=== PATIENT | male | born 1955 | race Caucasian/White ===

== ENCOUNTER 2016-12-09 10:15 | Inpatient (IN) | payer OTHER ==
[~2016-12-09] VITALS: Ht 162.6 cm; Wt 144.7 kg
--- NOTE | ~2016-12-09 | HC ---
[facility] [place] [address] CONSULTATION Name: LUCHOHAYLEE MORA Room #: 213-P ADM IN M.R.#: [id number] Admission: 12/09/16 Attend Phys: Ethan Yip Discharge: Date of : 57 Report #: [id number] THIS REPORT FOR: //name// CC: Ethan Smith DATE OF SERVICE: 12/11/2016 REASON FOR CONSULTATION: Hypoxemia. IMPRESSION: 1. Hypoxia, question etiology. 2. History of restrictive lung disease as well as asthma. 3. Obstructive sleep apnea. 4. Atrial fibrillation with rapid ventricular response, being treated. 5. Coronary artery disease. 6. Hypertension. 7. Possible pulmonary stenosis. 8. Obesity. PLAN: Related he felt better when he was on Symbicort 160. We will add Pulmicort. Continue aerosol treatments. We will check and see if needs O2 with the CPAP. Further evaluation regarding pulmonic stenosis will be considered. Wean corticosteroids as able. HISTORY OF PRESENT ILLNESS: A 61-year-old male admitted on the with progressive shortness breath and cough. No sputum production, found to have atrial fibrillation with a fast rate. Has been doing some better during his stay. ALLERGIES: To PENICILLIN and NIACIN and also to BEESTINGS and WASP. CURRENT MEDICATIONS: Include albuterol, budesonide, metoprolol, torsemide, aspirin, Eliquis for the AFib, Lipitor, Solu-Medrol, Levaquin, hydrocodone, Ambien and CPAP. PAST MEDICAL HISTORY: Dyslipidemia, pulmonic stenosis, chest pain, asthma, sleep apnea, obesity, osteoarthritis, migraine headaches and coronary artery disease. PAST SURGICAL HISTORY: Angiogram to brain in 2002. FAMILY HISTORY: Positive for heart disease and cancer. SOCIAL HISTORY: Negative ETOH or tobacco. [facility] [address] [place] [address] CONSULTATION Name: LUCHOHAYLEERASHMI MORA Room #: 213-P [facility] IN ..#: [id number] Admission: 12/09/16 Attend Phys: Ethan Yip Discharge: Date of : 57 Report #: [id number] REVIEW OF SYSTEMS: Positive dyspnea on exertion, wheeze, cough and weight gain. No hemoptysis or hematemesis. PHYSICAL EXAMINATION: VITAL SIGNS: Temperature 98.2, pulse 90, respirations 16 and BP 114/66. EYES: Negative icterus. NECK: Negative JVD. LUNGS: Showed decreased breath sounds. No wheeze. HEART: Regular. ABDOMEN: Bowel sounds present. Obese. EXTREMITIES: Showed positive edema. LABORATORY DATA: Chest x-ray showed no acute and positive cardiomegaly. PH 7.437, pCO2 of 43 and pO2 of 58 on 2 liters. White count was 19.6, hemoglobin 11, platelets 347 and bands 1. D-dimer 0.99. TSH 1.542. Echo did show EF 55%, left atrium dilated, right atrium normal, mild MR and pulmonic stenosis may be present. We will follow closely with you. By: 1457 1832 Payton Beckman MD /iván
--- NOTE | ~2016-12-09 | EKG ---
[address] [place] [address] ELECTROCARDIOGRAM REPORT Name: LUCHOHAYLEE MORGAN Room #: 213-P ADM IN M.R.#: [id number] Admission: 12/09/16 Attend Phys: Ethan Yip Discharge: Date of : 57 Report #: [id number] THIS REPORT FOR: //name// [facility] ED Test Date: 2016-12-09 Test Time: 10:17:42 Pat Name: HAYLEE YEPEZ Department: Room: 213 Gender: M Wildland Firefighter: [id number] : 1955 Requested By: Art Sorensen Order Number: [id number] MD: Linwood Morris Measurements Intervals [place] Rate: 126 P: [place]: QRS: 148 QRSD: 94 T: 51 QT: 331 QTc: 480 Interpretive Statements Atrial fibrillation Right axis deviation Poor R wave progression No previous ECG available for comparison Electronically Signed On 12-10-2016 8:04:20 CDT by Linwood Morris [email or web address] <ELECTRONICALLY SIGNED> By: Linwood Morris MD, [facility] 12/10/16 0804 1017 1017 Linwood Morris MD, FACC /EPI
--- NOTE | ~2016-12-09 | 2DMMODE ---
[facility] [place] [address] 2 D/M-MODE ECHOCARDIOGRAM Name: LUCHOHAYLEE MORA Room #: 213-P ADM IN M.R.#: [id number] Admission: 12/09/16 Attend Phys: Ethan Pinon Discharge: Date of : 57 Date of Service: 12/09/16 1717 Report #: [id number] THIS REPORT FOR: //name// APPROVED REPORT Study performed: 12/09/2016 14:30:25 EXAM: Comprehensive 2D, Doppler, and color-flow Echocardiogram Patient Location: Bedside Room #: 213 Status: routine BSA: 2.38 HR: 102 bpm BP: 120/75 mmHg Other Information Study Quality: Fair Indications Atrial Fibrillation Dyspnea Hypertension/HDD HLP Echo Enhancing Agent Indication: Endocardial border delineation Agent(s) / Amount(s) Used: Optison 6 cc Aortic Valve AoV Peak Presley.: 1.38 m/s AO Peak Gr.: 7.67 mmHg Pulmonary Valve PV Peak Presley.: 1.98 m/s PV Peak Gr.: 15.76 mmHg Left Ventricle The left ventricle is normal size. There is normal left ventricular wall thickness. The left ventricular systolic function is normal. The left ventricular ejection fraction is within the normal range. LVEF is >55%. This study is not technically sufficient to allow evaluation of the LV diastolic function due to atrial fibrillation. Right Ventricle The right ventricle is normal size. The right ventricular systolic [facility] [address] [place] [address] 2 D/M-MODE ECHOCARDIOGRAM Name: HAYLEE YEPEZ Room #: 213-P ADM IN M.R.#: [id number] Admission: 12/09/16 Attend Phys: Ethan Pinon Discharge: Date of : 57 Date of Service: 12/09/16 1717 Report #: [id number] function is normal. Atria Left atrium is dilated. The right atrium size is normal. Aortic Valve Aortic valve is not well visualized. No aortic regurgitation is present. There is no aortic valvular stenosis. Mitral Valve Mitral valve is not well visualized. Mild mitral regurgitation. No evidence of mitral valve stenosis. Tricuspid Valve Tricuspid valve is not well visualized. There is no tricuspid valve regurgitation noted. Pulmonic Valve Pulmonic valve is not well visualized. Pulmonic stenosis MAY BE present. There is no pulmonic valvular regurgitation. Great Vessels The aortic root is normal in size. IVC is not well visualized. Pericardium There is no pericardial effusion. <Conclusion> The left ventricle is normal size. LVEF is >55%. Left atrium is dilated. The right atrium size is normal. Aortic valve is not well visualized. Mitral valve is not well visualized. Mild mitral regurgitation. Tricuspid valve is not well visualized. Pulmonic valve is not well visualized. Pulmonic stenosis MAY BE present. The aortic root is normal in size. <ELECTRONICALLY SIGNED> By: Sumit Riley MD 12/09/161716 16 16 Sumit Riley MD /INF
[~2016-12-09 10:15] MED LIST: ASPIRIN325 PO; B-12 DOTS500 MCG PO; BENICAR HCT 201 EACH PO; BILBERRY1 EAC1 PO; CALCIUM PO; CHROMIUM PICO400 MCG PO; CRESTOR10 MG PO; FLAX OIL1000 MG PO; FOLIC ACID0.4 MG PO; GARLIC OIL1 EAC1 PO; GINKGO BILOBA40 M1 PO; GINSANA100 M1 PO; GLUCOSAMINE &1 EACH PO; GRAPE SEED EXTR50 MG PO; HAWTHORN BERRY500 MG PO; ISOSORBIDE DINI30 MG PO; MELOXICAM7.5 MG PO; MOVANA300 MG PO; MULTIVITAMINS PO; POTASSIUM GLUCONATE PO; PROVENTIL INH; QVAR HFA 440 MCG/UN1 INH; SAW PALMETTO 1160 MG PO; VITAMIN D1000 UNI1 PO; VITAMIN E400 UNIT PO
[2016-12-09 10:16] VITALS: BP 127/81
[2016-12-09 10:29] LABS: HEMOGLOBIN 11.1 gm/dL (14.0-18.0); MCHC 30.8 g/dL (28.0-37.0); MCV 71.3 fL (80.0-100.0); PLATELET COUNT 283 thou/uL (150-400); RBC 5.05 mil/uL (4.50-6.00); RDW 17.8 % (10.5-14.5); WBC 14.4 thou/uL (4.0-11.0)
[2016-12-09 10:30] LABS: MANUAL DIFF YES
[2016-12-09 10:40] LABS: ANION GAP 7 mmol/L (7-16); BUN 11 mg/dL (7-18); CALCIUM 9.1 mg/dL (8.5-10.1); CHLORIDE 104 mmol/L (98-107); CO2 30 mmol/L (21-32); CREATININE 0.9 mg/dL (0.7-1.3); GLUCOSE 108 mg/dL (74-106); POTASSIUM 3.7 mmol/L (3.5-5.1); SODIUM 141 mmol/L (136-145)
[2016-12-09 10:53] LABS: NT-PRO BRAIN NAT PEPTIDE 702 pg/mL (<300); TROPONIN-I < 0.04 ng/mL (<0.04-0.07)
[2016-12-09 11:16] LABS: ABSOLUTE NEUTROPHILS 11.1 thou/uL (1.4-8.2); ANISOCYTOSIS 2+; HYPOCHROMASIA 1+; MICROCYTES 2+; NUCLEATED RBCS 1 /100WBC; PLATELET ESTIMATE NORMAL; POLYCHROMASIA 1+; TOTAL CELL COUNT 100
[2016-12-09 11:37] VITALS: BP 127/74
[2016-12-09 11:50] VITALS: BP 120/66
[2016-12-09 12:15] VITALS: BP 120/75
[2016-12-09] MEDS ORDERED: NABUMETONE 500500 M1 PO (13:08)
[2016-12-09] MEDS ORDERED: LASIX 40 MG TAB40 M2 PO (13:08)
[2016-12-09] MEDS ORDERED: FLOMAX0.4 MG PO (13:08)
[2016-12-09] MEDS ORDERED: LISINOPRIL20 MG PO (13:08)
[2016-12-09] MEDS ORDERED: SYMBICORT80 MCG/4.5 INH (13:08)
[2016-12-09] MEDS ORDERED: ROSUVASTATIN CA40 MG PO (13:08)
[2016-12-09] MEDS ORDERED: FLOVENT HFA 2220 MCG INH (13:09)
[2016-12-09] MEDS ORDERED: CO Q-10100 MG (13:42)
[2016-12-09 15:57] VITALS: BP 128/86
[2016-12-09 19:23] VITALS: BP 116/64
[2016-12-10 03:46] VITALS: BP 113/72
[2016-12-10 08:00] VITALS: BP 132/94
[2016-12-10 12:00] VITALS: BP 122/83
[2016-12-10 16:00] VITALS: BP 132/70
[2016-12-10 19:45] VITALS: BP 133/77
[2016-12-11 03:28] LABS: CALCIUM 8.6 mg/dL (8.5-10.1); CREATININE 0.7 mg/dL (0.7-1.3); MAGNESIUM 2.3 mg/dL (1.8-2.4); POTASSIUM 4.4 mmol/L (3.5-5.1)
[2016-12-11 04:35] VITALS: BP 116/60
[2016-12-11 07:20] VITALS: BP 117/64
[2016-12-11 09:56] LABS: HEMATOCRIT 36.4 % (42.0-52.0); MCH 21.9 pg (26.0-34.0); MCHC 30.2 g/dL (28.0-37.0); MCV 72.4 fL (80.0-100.0); PLATELET COUNT 347 thou/uL (150-400); RBC 5.02 mil/uL (4.50-6.00); RDW 18.2 % (10.5-14.5); WBC 19.6 thou/uL (4.0-11.0)
[2016-12-11 10:02] LABS: MANUAL DIFF YES
[2016-12-11 10:36] LABS: TOTAL CELL COUNT 100
[2016-12-11 10:37] LABS: HYPOCHROMASIA 2+; MICROCYTES 1+
[2016-12-11 10:38] LABS: POIKILOCYTOSIS SLIGHT; POLYCHROMASIA 1+
[2016-12-11 11:14] VITALS: BP 114/66
[2016-12-11 11:28] LABS: ABG SAMPLE TYPE ARTERIAL; BE(vivo) 3.6 mmol/L (-2 to +3); HCO3 28.2 mmol/L (22.0-26.0); LACTATE 2.67 mmol/L (0.5-2.0); O2Hb 89.6 % (92.0-98.0); PCO2 42.7 mmHg (35.0-45.0); PO2 58.5 mmHg (80.0-100.0); STICK SITE R.RADIAL; pH 7.437 (7.360-7.450); sO2 91.2 % (92.0-98.0); tCO2 29.5 mmol/L (24.0-30.0)
[2016-12-11 15:31] VITALS: BP 95/66
[2016-12-11 19:52] VITALS: BP 119/78
[2016-12-12 04:55] VITALS: BP 116/78
[2016-12-12 07:41] VITALS: BP 113/73
[2016-12-12 11:26] VITALS: BP 97/56
[2016-12-12 16:30] VITALS: BP 112/78
[2016-12-12 20:34] VITALS: BP 134/75
[2016-12-13 03:11] LABS: HEMATOCRIT 36.5 % (42.0-52.0); MCH 21.6 pg (26.0-34.0); MCHC 30.1 g/dL (28.0-37.0); MCV 71.8 fL (80.0-100.0); PLATELET COUNT 300 thou/uL (150-400); RBC 5.09 mil/uL (4.50-6.00); RDW 18.5 % (10.5-14.5); WBC 11.9 thou/uL (4.0-11.0)
[2016-12-13 03:13] LABS: MANUAL DIFF YES
[2016-12-13 03:30] VITALS: BP 135/71
[2016-12-13 03:39] LABS: CALCIUM 8.5 mg/dL (8.5-10.1); CREATININE 0.8 mg/dL (0.7-1.3); MAGNESIUM 2.3 mg/dL (1.8-2.4); POTASSIUM 3.8 mmol/L (3.5-5.1)
[2016-12-13 03:57] LABS: ABSOLUTE NEUTROPHILS 8.7 thou/uL (1.4-8.2); ATYPICAL MONONUCLEARS 2 %; HYPOCHROMASIA 2+; TOTAL CELL COUNT 100
[2016-12-13 03:58] LABS: ANISOCYTOSIS 2+; LARGE PLATELETS FEW; MICROCYTES 1+; POLYCHROMASIA 1+
[2016-12-13 08:08] VITALS: BP 104/62
[2016-12-13] MEDS ORDERED: POTASSIUM20 PO (08:48)
[2016-12-13] MEDS ORDERED: ELIQUIS5 MG PO (08:48)
[2016-12-13] MEDS ORDERED: TOPROL XL100 MG PO (08:48)
[2016-12-13] MEDS ORDERED: DEMADEX20 MG PO (08:48)
[2016-12-13] MEDS ORDERED: DIGOXIN250 MCG PO (08:48)
[2016-12-13] MEDS ORDERED: PREDNISONE 10 M10 MG PO (08:48)
[2016-12-13] MEDS ORDERED: LEVAQUIN 500 M500 M4 PO (08:48)
[2016-12-13] MEDS ORDERED: LISINOPRIL20 MG PO (08:50)
[2016-12-13 11:30] VITALS: BP 109/64
[2016-12-13 15:04] VITALS: BP 109/64
== END 2016-12-13 16:45 | disposition home health service (06) | DRG 871 ==
LOC: ER 10:15 → EROBS 11:03 → 2N 11:03
PROVIDERS: Emergency Medicine; Hospitalist; Internal Medicine; Internal Medicine Pulmonary Disease
DX: A41.9 Sepsis, unspecified organism (principal); J96.01 Acute respiratory failure with hypoxia; I50.33 Acute on chronic diastolic (congestive) heart failure; J44.1 Chronic obstructive pulmonary disease with (acute) exacerbation; J44.0 Chronic obstructive pulmonary disease with (acute) lower respiratory infection; J45.901 Unspecified asthma with (acute) exacerbation; Z68.43 Body mass index [BMI] 50.0-59.9, adult; I11.0 Hypertensive heart disease with heart failure; I48.91 Unspecified atrial fibrillation; E78.00 Pure hypercholesterolemia, unspecified; I25.10 Atherosclerotic heart disease of native coronary artery without angina pectoris; E78.5 Hyperlipidemia, unspecified; R09.02 Hypoxemia; G47.33 Obstructive sleep apnea (adult) (pediatric); M19.90 Unspecified osteoarthritis, unspecified site; G43.909 Migraine, unspecified, not intractable, without status migrainosus; J20.9 Acute bronchitis, unspecified; E66.01 Morbid (severe) obesity due to excess calories; D72.829 Elevated white blood cell count, unspecified; T38.0X5A Adverse effect of glucocorticoids and synthetic analogues, initial encounter; Z88.1 Allergy status to other antibiotic agents; Z88.0 Allergy status to penicillin; Z82.49 Family history of ischemic heart disease and other diseases of the circulatory system; Z80.9 Family history of malignant neoplasm, unspecified; Z79.899 Other long term (current) drug therapy; Z79.82 Long term (current) use of aspirin
CPT/HCPCS: 10081

== ENCOUNTER 2017-01-06 10:34 | Inpatient (IN) | payer OTHER ==
[~2017-01-06] VITALS: Ht 162.6 cm; Wt 132.0 kg
--- NOTE | ~2017-01-06 | O ---
[facility] [place] [address] OPERATIVE REPORT Name: HAYLEE YEPEZ Room #: 212-P ADM IN M.R.#: [id number] Admission: 01/06/17 Attend Phys: Yovany Goff MD Discharge: Date of : 57 Report #: [id number] THIS REPORT FOR: //name// CC: Sumit Ho PROCEDURE PERFORMED: EGD. INDICATIONS: Progressive anemia. MEDICATIONS: IV propofol under the direction of Anesthesiology. POST-PROCEDURAL FINDINGS: Normal upper endoscopy, with no evidence of old or new blood within the upper GI tract. DESCRIPTION OF PROCEDURE: The potential risks and benefits of upper endoscopy were reviewed in detail with the patient prior to the procedure. Informed consent was obtained. Following intravenous sedation with incremental dosages of IV propofol, under the direction of Anesthesiology, the upper endoscope was inserted into the esophagus under direct vision and advanced. The squamocolumnar junction appeared intact at 43 cm from the incisors, with no evidence of distal esophageal varices or other irregularities. The stomach was inspected in an antegrade and retrograde manner and appeared normal. The pylorus was easily intubated and duodenal bulb and duodenal sweep appeared unremarkable. The ampulla was well-visualized. No evidence of old or new blood was present in the upper GI tract. RECOMMENDATIONS: 1. Monitor H and H. 2. Check stool for occult blood. 3. Transfusion of 2 units packed red blood cells to be considered after discussion with Cardiology. 4. Colonoscopy may be required during this hospitalization. By: 0920 0944 Walter Horne MD /nt
--- NOTE | ~2017-01-06 | HC ---
[facility] [place] [address] CONSULTATION Name: HAYLEE YEPEZ Room #: 212-P ADM IN .R.#: [id number] Admission: 01/06/17 Attend Phys: Yovany Goff MD Discharge: Date of : 57 Report #: [id number] THIS REPORT FOR: //name// CC: Sumit Ho DATE OF SERVICE: 01/07/2017 HISTORY OF PRESENT ILLNESS: The patient is a 61-year-old male who was admitted yesterday due to some dizziness and feeling weak in general. He also had some tightness in his chest. He does have a history of AFib and congestive heart failure. Cardiology is following and workup has been negative. Reason for GI consultation is anemia. The patient was noted to have a hemoglobin on admission of 8.4, this dropped to 7.3 today. He was hospitalized last month and had a hemoglobin in 11 range at that time. He does report noticing dark stools over the last month. He denies any nausea or vomiting. He has never had an upper endoscopy before. He had a colonoscopy 2-3 years ago, reportedly benign polyps were removed at that time, but otherwise negative. He does report mild pain in his mid epigastrium, lower chest area. No significant dysphagia. No significant heartburn symptoms. He is on aspirin and Eliquis. The patient had breakfast this morning. He denies any shortness of breath currently. No fevers or chills. He reports bowel movements otherwise have been normal other than being dark. ALLERGIES: To LATEX, PENICILLIN, and NIACIN. PAST MEDICAL HISTORY: Atrial fibrillation, history of asthma, hypercholesterolemia, sleep apnea, hypertension, and coronary artery disease. MEDICATIONS ON ADMISSION: Eliquis, Lanoxin, Toprol, Demadex, aspirin, K-Dur, Flomax, Symbicort, glucosamine, calcium, albuterol, and multivitamin. FAMILY HISTORY: Negative for colon cancer. REVIEW OF SYSTEMS: As per HPI. SOCIAL HISTORY: He denies any tobacco or alcohol use. PHYSICAL EXAMINATION: VITAL SIGNS: Temperature is 98.3, pulse 92, blood pressure 123/55, and respiratory rate is 22. GENERAL: He is alert and oriented x3, in no acute distress. [address] [address] CONSULTATION Name: HAYLEE YEPEZ Room #: [address] [place] [address] IN M.R.#: [id number] Admission: 01/06/17 Attend Phys: Yovany Goff MD Discharge: Date of : 57 Report #: [id number] HEENT: Sclerae nonicteric. Oropharynx clear. NECK: Supple without lymphadenopathy. CARDIOVASCULAR: Regular rate and rhythm. CHEST: Mild decreased breath sounds at the bases bilaterally. ABDOMEN: Soft, nontender, and nondistended. Normoactive bowel sounds. EXTREMITIES: No cyanosis, clubbing, or edema. LABS: Sodium 139, potassium 3.5, chloride 103, bicarb 29, BUN 19, and creatinine 0.8. AST 15, total bili 0.7, alk phos 80, ALT is 23, total protein 6.0, and albumin 2.9. Troponin less than 0.04. Lactic acid . WBC is 12.0, hemoglobin 7.3, MCV is 70.2, and platelet count 277. Chest x-ray, mild patchy bibasilar atelectasis, cardiomegaly without evidence of failure. CTA of the chest yesterday, changes consistent with pulmonary artery hypertension, no definite emboli noted, fatty infiltration of the liver ASSESSMENT AND PLAN: Anemia. The patient with Hemoccult positive stools, recent dark stools, and has been on Eliquis and aspirin. We would recommend proceeding with an upper endoscopy. The patient had breakfast this morning; therefore, we will plan on performing upper endoscopy tomorrow morning. We will make the patient n.p.o. after midnight. We will add Protonix at this time. Continue to monitor hemoglobin closely. Thank you for allowing me to participate in his care. <ELECTRONICALLY SIGNED> By: Jose Guillory MD 01/12/17 0954 1146 1305 Jose Guillory MD /nt
--- NOTE | ~2017-01-06 | EKG ---
[place] [address] [facility] [place] [address] ELECTROCARDIOGRAM REPORT Name: HAYLEE YEPEZ Room #: 212-P ADM IN M.R.#: [id number] Admission: 01/06/17 Attend Phys: Yovany Goff MD Discharge: Date of : 57 Report #: [id number] THIS REPORT FOR: //name// [facility] ED Test Date: 2017-01-06 Test Time: 10:46:09 Pat Name: HAYLEE YEPEZ Department: Room: 212 Gender: M Facs Teacher: Adal DELGADO : 1955 Requested By: Maria L Bean Order Number: [id number] MD: Linwood Morris Measurements Intervals [place] Rate: 100 P: [place]: QRS: 84 QRSD: 105 T: -59 QT: 339 QTc: 438 Interpretive Statements Atrial fibrillation Occasional premature ventricular complexes Nonspecific ST and T wave abnormality Compared to ECG 12/09/2016 10:17:42 Premature ventricular complexes are now present Nonspecific change in the ST and T-wave segments Electronically Signed On 01-07-2017 7:55:05 CDT by Linwood Morris [email or web address] <ELECTRONICALLY SIGNED> By: Linwood Morris MD, FACC 01/07/17 0755 1046 1046 Linwood Morris MD, [facility] /EPI
--- NOTE | ~2017-01-06 | S ---
[facility] [place] [address] SURGICAL PATH RPT PROCEDURE Name: HAYLEE CARROLL Room #: 212-P ADM IN M.R.#: [id number] Admission: 01/06/17 Date of : 57 Discharge: Report #: [id number] Path Case #: [id number] PATHOLOGY REPORT COLLECTION DATE: 01/10/2017 RECEIVED DATE: 01/10/2017 SUBMITTING PHYS: Dr. Eyad Ernst OTHER PHYS: Dr. Yovany Ho SPECIMEN(S) RECEIVED: A.Cecum polyp B.Ascending polyp C.Transverse polyp * * * * * * * * * * * * FINAL DIAGNOSIS: A. "Cecum polyp", biopsy: - Tubular adenoma; no high-grade dysplasia. B. "Ascending polyp", biopsy: - Tubular adenoma; no high-grade dysplasia. - Inflammatory polyp. C. "Transverse polyp", biopsy: - Inflammatory polyp with focal ulceration. (CLW:nino; 01/11/2017) PATHOLOGIST: Sissy Zapata M.D. REPORT ELECTRONICALLY SIGNED BY: Sissy Zapata M.D. DATE/TIME: 01/11/2017 22:58 * * * * * * * * * * * * GROSS PATHOLOGY: A. Received in formalin labeled "Haylee Carroll, cecum polyps," are 2 segments of torres soft tissue measuring 0.8 x 0.3 x 0.3 cm in aggregate dimensions and measuring 0.4 cm in maximum dimension. The specimen is submitted entirely in cassette A1. B. Received in formalin labeled "Haylee Carroll, ascending polyp," are multiple (more than 10) segments of torres soft tissue measuring 1.8 x 0.8 x 0.3 cm in aggregate dimensions and ranging from 0.1 to 0.4 cm in maximum dimension. The specimen is filtered and submitted entirely in cassette B1. C. Received in formalin labeled "Haylee Carroll, transverse colon polyp," is a 0.5 x 0.5 x 0.4 cm polypoid piece of torres soft tissue with a stalk measuring 0.3 cm in length and 0.3 cm in diameter. The margin of the stalk is inked and the tissue is sectioned [facility] [address] [place] [address] SURGICAL PATH RPT PROCEDURE Name: HAYLEE CARROLL Room #: 212-P [facility] IN M.R.#: [id number] Admission: 01/06/17 Date of : 57 Discharge: Report #: [id number] Path Case #: [id number] perpendicular to the margin and submitted in its entirety in cassette C1. (TSD; 01/10/2017) CLINICAL HISTORY: Pre-OP DX: Anemia Post-OP DX: Diverticuli, hemorrhoids, polyps INITIAL CPT CODE(S): A; 27731 B; 27253 C; 64892 Professional services performed by [facility] at [facility] [address], [place] [address] Technical services performed by [facility] at [address] [place] [address], [address], [place] [address]. [facility] [address] [place] [address] PHONE: [phone] DIRECTOR: Keshav Faria M.D. * * * END OF REPORT * * *
[2017-01-06 10:34] VITALS: BP 115/67
[~2017-01-06 10:34] MED LIST changes: +CO Q-10100 MG; +DEMADEX20 MG PO; +DIGOXIN250 MCG PO; +ELIQUIS5 MG PO; +FLOMAX0.4 MG PO; +FLOVENT HFA 2220 MCG INH; +LASIX 40 MG TAB40 M2 PO; +LEVAQUIN 500 M500 M4 PO; +LISINOPRIL20 MG PO; +NABUMETONE 500500 M1 PO; +POTASSIUM20 PO; +PREDNISONE 10 M10 MG PO; +ROSUVASTATIN CA40 MG PO; +SYMBICORT80 MCG/4.5 INH; +TOPROL XL100 MG PO
[2017-01-06 11:26] LABS: HEMATOCRIT 26.3 % (42.0-52.0); HEMOGLOBIN 8.4 gm/dL (14.0-18.0); MCH 22.6 pg (26.0-34.0); MCV 70.7 fL (80.0-100.0); PLATELET COUNT 296 thou/uL (150-400); RBC 3.72 mil/uL (4.50-6.00); RDW 20.8 % (10.5-14.5); WBC 11.8 thou/uL (4.0-11.0)
[2017-01-06 11:28] LABS: MANUAL DIFF YES
[2017-01-06] MEDS ORDERED: ASPIR 8181 MG PO (11:36)
[2017-01-06 11:43] LABS: ANION GAP 7 mmol/L (7-16); BUN 32 mg/dL (7-18); CALCIUM 8.6 mg/dL (8.5-10.1); CHLORIDE 100 mmol/L (98-107); CO2 29 mmol/L (21-32); CREATININE 0.9 mg/dL (0.7-1.3); GLUCOSE 119 mg/dL (74-106); POTASSIUM 3.8 mmol/L (3.5-5.1); SODIUM 136 mmol/L (136-145)
[2017-01-06 11:46] LABS: ALBUMIN 2.9 g/dL (3.4-5.0); ALKALINE PHOSPHATASE 80 U/L (46-116); SGOT 15 U/L (15-37); SGPT 23 U/L (30-65); TOTAL BILIRUBIN 0.7 mg/dL (<0.1-1.0); TROPONIN-I < 0.04 ng/mL (<0.04-0.07)
[2017-01-06 12:23] LABS: ABG SAMPLE TYPE ARTERIAL; BE(vivo) 6.9 mmol/L (-2 to +3); HCO3 30.5 mmol/L (22.0-26.0); LACTATE 1.73 mmol/L (0.5-2.0); O2(CT) 10.5 mL/dL (15.0-23.0); O2Hb 86.3 % (92.0-98.0); PCO2 39.6 mmHg (35.0-45.0); PO2 53.3 mmHg (80.0-100.0); pH 7.505 (7.360-7.450); sO2 90.5 % (92.0-98.0); tCO2 31.8 mmol/L (24.0-30.0)
[2017-01-06 12:24] LABS: STICK SITE R.RADIAL
[2017-01-06 12:30] LABS: ABSOLUTE NEUTROPHILS 8.4 thou/uL (1.4-8.2); ANISOCYTOSIS 2+; HYPOCHROMASIA 2+; LARGE PLATELETS FEW; MICROCYTES 3+; NUCLEATED RBCS 6 /100WBC; PLATELET ESTIMATE NORMAL; POLYCHROMASIA 2+; TOTAL CELL COUNT 100
[2017-01-06 14:45] VITALS: BP 101/62
[2017-01-06 15:30] VITALS: BP 124/64
[2017-01-06 15:39] VITALS: BP 102/67
[2017-01-06 19:35] VITALS: BP 114/55
[2017-01-07 03:28] VITALS: BP 114/57
[2017-01-07 04:32] LABS: HEMATOCRIT 23.4 % (42.0-52.0); HEMOGLOBIN 7.3 gm/dL (14.0-18.0); MCH 21.9 pg (26.0-34.0); MCHC 31.2 g/dL (28.0-37.0); MCV 70.2 fL (80.0-100.0); RBC 3.33 mil/uL (4.50-6.00); RDW 21.1 % (10.5-14.5)
[2017-01-07 04:44] LABS: CALCIUM 8.7 mg/dL (8.5-10.1); CREATININE 0.8 mg/dL (0.7-1.3); POTASSIUM 3.5 mmol/L (3.5-5.1)
[2017-01-07 07:15] VITALS: BP 123/55
[2017-01-07 11:10] VITALS: BP 92/55
[2017-01-07 14:04] VITALS: BP 92/55
[2017-01-07 15:30] VITALS: BP 95/55
[2017-01-07 19:21] VITALS: BP 105/54
[2017-01-08 03:30] LABS: HEMOGLOBIN 6.7 gm/dL (14.0-18.0)
[2017-01-08 03:31] LABS: HEMATOCRIT 21.6 % (42.0-52.0); MCH 21.9 pg (26.0-34.0); MCHC 30.9 g/dL (28.0-37.0); RBC 3.04 mil/uL (4.50-6.00); RDW 21.1 % (10.5-14.5); WBC 12.1 thou/uL (4.0-11.0)
[2017-01-08 03:35] LABS: CALCIUM 8.5 mg/dL (8.5-10.1); CREATININE 0.9 mg/dL (0.7-1.3); POTASSIUM 3.1 mmol/L (3.5-5.1)
[2017-01-08 05:21] VITALS: BP 110/63
[2017-01-08 07:20] VITALS: BP 113/67
[2017-01-08 11:29] VITALS: BP 113/67
[2017-01-08 11:30] VITALS: BP 87/40
[2017-01-08 11:59] VITALS: BP 113/62; BP 98/64
[2017-01-08 19:39] VITALS: BP 92/52
[2017-01-09 00:35] VITALS: BP 101/62
[2017-01-09 03:02] LABS: HEMOGLOBIN 7.6 gm/dL (14.0-18.0); MCH 23.1 pg (26.0-34.0); MCHC 31.5 g/dL (28.0-37.0); MCV 73.1 fL (80.0-100.0); RBC 3.29 mil/uL (4.50-6.00); RDW 23.1 % (10.5-14.5); WBC 9.5 thou/uL (4.0-11.0)
[2017-01-09 03:07] LABS: CREATININE 0.9 mg/dL (0.7-1.3); POTASSIUM 3.1 mmol/L (3.5-5.1)
[2017-01-09 04:39] VITALS: BP 97/59
[2017-01-09 07:20] VITALS: BP 113/68
[2017-01-09 11:20] VITALS: BP 79/52
[2017-01-09 15:40] VITALS: BP 89/54
[2017-01-09 19:27] VITALS: BP 97/55
[2017-01-10 04:17] VITALS: BP 99/63
[2017-01-10 07:59] VITALS: BP 108/63
[2017-01-10 12:32] VITALS: BP 110/51
[2017-01-10 12:40] VITALS: BP 112/60
[2017-01-10 15:09] LABS: ABSOLUTE NEUTROPHILS 8.9 thou/uL (1.4-8.2); BASOPHILS 0.6 % (0.0-2.0); EOSINOPHILS 2.2 % (0.0-3.0); HEMATOCRIT 27.1 % (42.0-52.0); HEMOGLOBIN 8.7 gm/dL (14.0-18.0); LYMPHOCYTES 14.8 % (24.0-44.0); MCH 23.5 pg (26.0-34.0); MCHC 32.1 g/dL (28.0-37.0); MCV 73.1 fL (80.0-100.0); MONOCYTES 9.1 % (1.0-8.0); POLYS 73.3 % (36.0-66.0); RDW 23.5 % (10.5-14.5); WBC 12.1 thou/uL (4.0-11.0)
[2017-01-10 15:10] LABS: PLATELET COUNT 334 thou/uL (150-400)
[2017-01-10 15:11] LABS: MANUAL DIFF NO
[2017-01-10 15:31] VITALS: BP 98/52
[2017-01-10 15:57] LABS: ANISOCYTOSIS 2+; MICROCYTES 2+
[2017-01-10 15:58] LABS: HYPOCHROMASIA 2+; POIKILOCYTOSIS SLIGHT; POLYCHROMASIA SLIGHT
[2017-01-10 20:27] VITALS: BP 92/55
[2017-01-11 04:00] VITALS: BP 104/64
[2017-01-11 04:13] LABS: HEMATOCRIT 24.4 % (42.0-52.0); HEMOGLOBIN 7.8 gm/dL (14.0-18.0); MCH 23.1 pg (26.0-34.0); MCHC 32.1 g/dL (28.0-37.0); MCV 71.9 fL (80.0-100.0); RBC 3.39 mil/uL (4.50-6.00); RDW 22.9 % (10.5-14.5); WBC 11.7 thou/uL (4.0-11.0)
[2017-01-11 04:25] LABS: CALCIUM 8.3 mg/dL (8.5-10.1); CREATININE 0.8 mg/dL (0.7-1.3); POTASSIUM 3.3 mmol/L (3.5-5.1)
[2017-01-11 07:40] VITALS: BP 97/47
[2017-01-11 09:02] VITALS: BP 120/60
[2017-01-11 11:30] VITALS: BP 89/57
[2017-01-11 15:35] VITALS: BP 95/63
[2017-01-11 20:30] VITALS: BP 138/98
[2017-01-12 04:35] VITALS: BP 106/63
[2017-01-12 06:05] LABS: HEMATOCRIT 24.6 % (42.0-52.0); HEMOGLOBIN 7.8 gm/dL (14.0-18.0); MCH 22.9 pg (26.0-34.0); MCHC 31.8 g/dL (28.0-37.0); RBC 3.42 mil/uL (4.50-6.00); WBC 14.3 thou/uL (4.0-11.0)
[2017-01-12 06:23] LABS: CALCIUM 8.7 mg/dL (8.5-10.1); CREATININE 0.8 mg/dL (0.7-1.3); MAGNESIUM 2.1 mg/dL (1.8-2.4); POTASSIUM 3.9 mmol/L (3.5-5.1)
[2017-01-12 07:54] VITALS: BP 90/55
[2017-01-12 12:07] VITALS: BP 107/71
[2017-01-12 13:38] VITALS: BP 107/71
[2017-01-12 15:50] VITALS: BP 98/40
== END 2017-01-12 17:30 | disposition home or self-care (01) | DRG 393 ==
LOC: ER 10:34 → EROBS 14:17 → 2N 14:17
PROVIDERS: Hospitalist; Internal Medicine; Physician Assistant
PROC: 0DJ08ZZ Inspection of Upper Intestinal Tract, Via Natural or Artificial Opening Endoscopic (ICD-10-PCS; principal; 2017-01-06)
PROC: 30233N1 Transfusion of Nonautologous Red Blood Cells into Peripheral Vein, Percutaneous Approach (ICD-10-PCS; 2017-01-08)
PROC: 0DBH8ZX Excision of Cecum, Via Natural or Artificial Opening Endoscopic, Diagnostic (ICD-10-PCS; 2017-01-10)
PROC: 0DBL8ZX Excision of Transverse Colon, Via Natural or Artificial Opening Endoscopic, Diagnostic (ICD-10-PCS; 2017-01-10)
PROC: 0DBK8ZX Excision of Ascending Colon, Via Natural or Artificial Opening Endoscopic, Diagnostic (ICD-10-PCS; 2017-01-10)
DX: D12.3 Benign neoplasm of transverse colon (principal); I50.33 Acute on chronic diastolic (congestive) heart failure; J96.21 Acute and chronic respiratory failure with hypoxia; Z68.42 Body mass index [BMI] 45.0-49.9, adult; J44.9 Chronic obstructive pulmonary disease, unspecified; I48.91 Unspecified atrial fibrillation; E66.9 Obesity, unspecified; I25.10 Atherosclerotic heart disease of native coronary artery without angina pectoris; I11.0 Hypertensive heart disease with heart failure; D64.9 Anemia, unspecified; E78.5 Hyperlipidemia, unspecified; G47.33 Obstructive sleep apnea (adult) (pediatric); K64.8 Other hemorrhoids; K57.30 Diverticulosis of large intestine without perforation or abscess without bleeding; Z99.81 Dependence on supplemental oxygen; Z79.899 Other long term (current) drug therapy; Z79.82 Long term (current) use of aspirin; Z79.01 Long term (current) use of anticoagulants; Z91.040 Latex allergy status; Z88.0 Allergy status to penicillin; Z88.8 Allergy status to other drugs, medicaments and biological substances; Z82.49 Family history of ischemic heart disease and other diseases of the circulatory system
CPT/HCPCS: 10081; 62110; 62900; 70005

== ENCOUNTER → 2017-06-17 | Outpatient (CLI) | payer OTHER ==
[~2017-06-17] VITALS: Ht 165.1 cm; Wt 128.8 kg
[~2017-06-17] MED LIST changes: +ASPIR 8181 MG PO; +B-COMPLEX PLUS1 EACH PO; +FLECAINIDE ACET50 M1 PO; +PRADAXA150 MG PO; +PROAIR HFA8.5 GM INH; +SYMBICORT80 MCG/4.1 INH; +VITAMIN C100 MG PO
--- NOTE | ~2017-06-17 | P ---
[facility] [address] [place] [address] PROCEDURE REPORT Name: LUCHOHAYLEE MORA Room #: REG [facility]#: [id number] Admission: 06/17/17 Attend Phys: Carlos Lou MD Discharge: Date of : 57 Report #: [id number] THIS REPORT FOR: //name// CC: Sumit Smith PREOPERATIVE DIAGNOSIS: Atrial fibrillation. POSTOPERATIVE DIAGNOSIS: Atrial fibrillation. DESCRIPTION OF PROCEDURE: The patient underwent informed consent. He was sedated by the Anesthesiology Service. He underwent 3 attempts at cardioversion at 200 joules, which were unsuccessful in restoring sinus rhythm. CONCLUSIONS: Unsuccessful cardioversion despite multiple attempts at cardioversion. By: 1328 1929 Carlos Lou MD /nt
--- NOTE | ~2017-06-17 | EKG ---
[address] [address] ELECTROCARDIOGRAM REPORT Name: HAYLEE YEPEZ Room #: REG [facility]#: [id number] Admission: 06/17/17 Attend Phys: Carlos Lou MD Discharge: Date of : 57 Report #: [id number] THIS REPORT FOR: //name// [facility] Test Date: 2017-06-17 Test Time: 12:32:26 Pat Name: HAYLEE YEPEZ Department: Room: Gender: M Personnel Placement Specialist: Melvin POSADA : 1955 Requested By: Carlos Lou Order Number: [id number] MD: Minh Hernandez Measurements Intervals [place] Rate: 84 P: [place]: QRS: 189 QRSD: 111 T: 53 QT: 397 QTc: 470 Interpretive Statements Atrial fibrillation Right axis deviation Abnormal R-wave progression, late transition Compared to ECG 01/06/2017 10:46:09 Right-axis deviation now present Ventricular premature complex(es) no longer present ST (T wave) deviation no longer present Electronically Signed On 06-18-2017 12:19:56 IRONWORKER WIRE FENCE ERECTOR by Minh Hernandez [email or web address] <ELECTRONICALLY SIGNED> By: Minh Hernandez MD 06/18/17 1219 1232 1232 Minh Hernandez MD /EPI
--- NOTE | ~2017-06-17 | EKG ---
[address] [address] ELECTROCARDIOGRAM REPORT Name: HAYLEE YEPEZ Room #: REG [facility]#: [id number] Admission: 06/17/17 Attend Phys: Carlos Lou MD Discharge: Date of : 57 Report #: [id number] THIS REPORT FOR: //name// [facility] Test Date: 2017-06-17 Test Time: 13:01:41 Pat Name: HAYLEE YEPEZ Department: Room: Gender: M Concession Attendant: Melvin POSADA : 1955 Requested By: Carlos Lou Order Number: [id number] MD: Minh Hernandez Measurements Intervals [place] Rate: 78 P: [place]: QRS: 182 QRSD: 113 T: 35 QT: 426 QTc: 486 Interpretive Statements Atrial fibrillation Borderline intraventricular conduction delay Abnormal R-wave progression, late transition Compared to ECG 01/06/2017 10:46:09 Ventricular premature complex(es) no longer present ST (T wave) deviation no longer present Electronically Signed On 06-18-2017 12:20:09 BROOM MAKER by Minh Hernandez [email or web address] <ELECTRONICALLY SIGNED> By: Minh Hernandez MD 06/18/17 1220 1301 1301 Minh Hernandez MD /EPI
[2017-06-17 11:35] VITALS: BP 141/78
[2017-06-17 11:52] LABS: HEMATOCRIT 43.1 % (42.0-52.0); HEMOGLOBIN 13.9 gm/dL (14.0-18.0); MCH 25.2 pg (26.0-34.0); MCHC 32.2 g/dL (28.0-37.0); MCV 78.1 fL (80.0-100.0); RBC 5.51 mil/uL (4.50-6.00); RDW 17.9 % (10.5-14.5); WBC 11.4 thou/uL (4.0-11.0)
[2017-06-17 12:01] LABS: CALCIUM 9.1 mg/dL (8.5-10.1); CREATININE 0.8 mg/dL (0.7-1.3); POTASSIUM 3.1 mmol/L (3.5-5.1)
[2017-06-17 12:03] LABS: APTT 34.5 Seconds (24.5-32.8); INR 1.3
[2017-06-17 12:06] LABS: ALBUMIN 3.2 g/dL (3.4-5.0); TOTAL PROTEIN 7.3 g/dL (6.4-8.2)
== END | disposition home or self-care (01) ==
LOC: CATH 09:33
PROVIDERS: Internal Medicine Cardiovascular Disease
DX: I48.91 Unspecified atrial fibrillation (principal)
CPT/HCPCS: 62110; 62900

== ENCOUNTER → 2019-02-07 | Outpatient (CLI) | payer OTHER | LOC: RAD 12:47 | DX: J45.40 Moderate persistent asthma, uncomplicated (principal); Z88.8 Allergy status to other drugs, medicaments and biological substances; Z91.040 Latex allergy status; Z88.0 Allergy status to penicillin ==

== ENCOUNTER → 2019-11-20 | Outpatient (CLI) | payer OTHER | LOC: SJCVCIMAG 06:03 | PROVIDERS: ATTEND Internal Medicine | DX: I08.1 Rheumatic disorders of both mitral and tricuspid valves (principal); I48.91 Unspecified atrial fibrillation ==

== ENCOUNTER → 2020-02-19 | Outpatient (CLI) | payer OTHER | LOC: RAD 09:17 | PROVIDERS: ATTEND Internal Medicine Pulmonary Disease | DX: J45.40 Moderate persistent asthma, uncomplicated (principal); I51.7 Cardiomegaly; I27.21 Secondary pulmonary arterial hypertension ==

== ENCOUNTER → 2020-06-10 | Outpatient (CLI) | payer BC, OTHER | LOC: SJCVCIMAG 11:32 | PROVIDERS: ATTEND Internal Medicine | DX: I51.7 Cardiomegaly (principal); J44.9 Chronic obstructive pulmonary disease, unspecified; I50.9 Heart failure, unspecified; I48.91 Unspecified atrial fibrillation; G47.33 Obstructive sleep apnea (adult) (pediatric) ==

== ENCOUNTER → 2021-03-27 | Outpatient (CLI) | payer OTHER ==
--- NOTE | 2021-03-27 14:11 | 2DMMODE ---
[facility] [place] [address] 2 D/M-MODE ECHOCARDIOGRAM Name: HAYLEE YEPEZ Room #: REG [facility]#: [id number] Admission: 03/27/21 Attend Phys: Jay Jay Ho MD Discharge: Date of : 57 Report #: [id number] THIS REPORT FOR: cc: Feliciano Smith,Sumit Holt MD ~ APPROVED REPORT Study performed: 03/27/2021 11:41:11 EXAM: Comprehensive 2D, Doppler, and color-flow Echocardiogram Patient Location: Out-Patient Status: routine BSA: 2.25 HR: 69 bpm BP: 131/74 mmHg Rhythm: Atrial Fibrillation Other Information Study Quality: Fair Technically limited study due to morbid obesity and lung disease.. Indications Short of breath. Hx: COPD, Pulmonic stenosis, Afib with 3 unsuccessful cardioversion, HTN, HLP, DM, morbid obesity. 2D Dimensions RVDd: 53.89 mm IVSd: 9.69 (7-11mm) LVOT Diam: 19.71 (18-24mm) LVDd: 55.66 mm PWd: 10.90 (7-11mm) LVDs: 40.18 (25-40mm) Left Atrium: 44.76 (27-40mm) Aortic Root: 36.13 mm Volumes Left Atrial Volume (Systole) Single Plane 4CH: 65.19 mL Single Plane 2CH: 110.98 mL LA ESV Index: 40.00 mL/m2 Aortic Valve [facility] [address] [place] [address] 2 D/M-MODE ECHOCARDIOGRAM Name: HAYLEE YEPEZ Room #: REG [facility]#: [id number] Admission: 03/27/21 Attend Phys: Jay Jay Ho MD Discharge: Date of : 57 Report #: [id number] AoV Peak Presley.: 1.21 m/s AO Peak Gr.: 5.87 mmHg LVOT Max P.93 mmHg LVOT Max V: 0.86 m/s SHIVA Vmax: 2.15 cm2 Mitral Valve MV Decel. Time: 130.52 ms MV E Max Presley.: 1.12 m/s Pulmonary Valve PV Peak Presley.: 2.48 m/s PV Peak Gr.: 0.00 mmHg Tricuspid Valve TR Peak Presley.: 2.83 m/s RAP Estimate: 15.00 mmHg TR Peak Gr.: 32.14 mmHg PA Pressure: 47.00 mmHg Left Ventricle The left ventricle is normal size. There is normal LV segmental wall motion. There is normal left ventricular wall thickness. Left ventricular systolic function is normal. LVEF is 55-60%. This study is not technically sufficient to allow evaluation of the LV diastolic function due to atrial fibrillation. Right Ventricle Right ventricle is severely dilated. The right ventricular systolic function is normal. Atria Left atrium is moderately dilated. Right atrium is severely dilated. Aortic Valve The aortic valve is not well visualized; appears mildly sclerotic. No aortic regurgitation is present. There is no aortic valvular stenosis. Mitral Valve The mitral valve is normal in structure. Moderate mitral regurgitation. Tricuspid Valve The tricuspid valve is normal in structure. Mild tricuspid regurgitation. Moderate pulmonary hypertension with an estimated PAP of 47mmHg. [facility] [address] [place] [address] 2 D/M-MODE ECHOCARDIOGRAM Name: LUCHOHAYLEE MORGAN Room #: REG [facility]#: [id number] Admission: 03/27/21 Attend Phys: Jay Jay Ho MD Discharge: Date of : 57 Report #: [id number] Pulmonic Valve Incresed flow velocities through the pulmonic valve suggestive of stenosis (Peak pressure gradient 22mmHg, mean 14mmHg). Mild pulmonic regurgitation. Great Vessels The aortic root is normal in size. Ascending aorta is not well visualized. IVC is severely dilated and collapses <50% with inspiration. Pericardium There is no pericardial effusion. <Conclusion> The left ventricle is normal size. LVEF is 55-60%. Right ventricle is severely dilated. Left atrium is moderately dilated. Right atrium is severely dilated. The aortic valve is not well visualized; appears mildly sclerotic. The mitral valve is normal in structure. Moderate to severe mitral regurgitation with an eccentric jet. The tricuspid valve is normal in structure. Mild tricuspid regurgitation. Moderate pulmonary hypertension with an estimated PAP of 47mmHg. Mild pulmonic regurgitation. The aortic root is normal in size. There is no pericardial effusion. <ELECTRONICALLY SIGNED> By: Sumit Riley MD 03/27/211409 09 09 Sumit Riley MD /INF
== END ==
LOC: CV 10:21
PROVIDERS: ATTEND Internal Medicine Pulmonary Disease
DX: I08.8 Other rheumatic multiple valve diseases (principal); I27.20 Pulmonary hypertension, unspecified; M25.78 Osteophyte, vertebrae; M47.814 Spondylosis without myelopathy or radiculopathy, thoracic region